=== PATIENT | female | born 1975 | race Caucasian/White ===

== ENCOUNTER 2017-03-05 11:24 | Emergency (ER) | payer BC ==
[~2017-03-05] VITALS: Ht 175.3 cm; Wt 67.3 kg
[2017-03-05 11:29] VITALS: TEMP 36.8; Ht 175.3 cm; Wt 67.3 kg
[2017-03-05] MEDS ORDERED: METHYLPREDNISOLONE 125 MG VIAL IV STA (12:10)
[2017-03-05] MEDS ORDERED: DiphenhydrAMINE HCL 50 MG/ML VIAL IV STA (12:10)
[2017-03-05] MEDS ORDERED: SODIUM CHLORIDE 0.9% 1000ML 1,000 ML IV STA (12:10)
[2017-03-05] MEDS ORDERED: OPTIRAY 320 IV PRN (12:30)
--- NOTE | 2017-03-05 12:33 | EMERGENCY ROOM VISIT NOTE ---
History Report prepared by Cassidy: Naina Salazar Under the Supervision of: Dr. Camille Rodriguez M.D. First contact with patient: 12:04 Chief Complaint: HEADACHE Stated Complaint: HAVING VISION CHANGES History of Present Illness The patient is a 41 year old female who presents to the Emergency Room with complaints of worsening headache starting 4 days ago. The pain is present along the top left side of her head. She has been having sinus issues for the past week. 4 days ago, she picked her grandson up from the ground when she started feeling a "crazy head brito". She started feeling the pain in her head and felt disoriented. She had some blurry vision and had trouble remembering some words. Her son told her that she seems confused and she had dark circles under her eyes. Since then her headache had gotten worse and her neck feels stiff. She has not had any speech difficulty or vision changes since then. She reports pain by her spine with deep breaths. She denies any fever, palpitations, chest pain, or back pain. She has a family history of aneurysms. She denies being on any hormone therapy or blood thinners. She does not smoke. She denies any medical problems. She does not take any medications besides some supplements. She denies any chance of . Source of History: patient Onset: 4 days ago Position: head Quality: ache Timing: worsening Associated Symptoms: No back pain, No chest pain, No fevers Note: Pt reports an episode of feeling disoriented, blurry vision, trouble remembering words, confusion, dark circles under eyes, pain by her spine with deep breaths. Pt denies palpitations. Review of Systems See HPI for pertinent positives & negatives. A total of 10 systems reviewed and were otherwise negative. Past Medical & Surgical Medical Problems: (1) No Known Active Medical Problems Family History FHx: aneurysm Social History Smoking Status: Never Smoker Marital Status: Occupation Status: unemployed Current/Historical Medications No Active Prescriptions or Reported Meds Allergies Coded Allergies: Iodinated Contrast Media (Verified Allergy, Intermediate, SNEEZING, HIVES AND ICHINESS, 03/05/17) Sulfa Drugs (Verified Allergy, Unknown, 03/05/17) RASH Physical Exam Vital Signs Date Time Temp Pulse Resp B/P Pulse Ox O2 Delivery O2 Flow Rate FiO2 03/05/17 14:43 93 18 130/68 97 03/05/17 13:48 98 16 143/75 99 Room Air 03/05/17 12:42 88 03/05/17 11:29 36.8 82 18 147/76 100 Room Air Physical Exam Vital signs reviewed. General: Well-appearing, in no significant distress. HEENT: No scleral icterus, PERRLA, neck supple. Atraumatic. No meningeal signs. Cardiovascular: Regular rate and rhythm, no extra sounds. Pulmonary: Clear to auscultation bilaterally, normal work of breathing. Abdomen: Soft, nontender, nondistended, positive bowel sounds. Musculoskeletal: Atraumatic, no peripheral edema. Neurologic: Patient awake alert and oriented x 3, full strength in all 4 extremities. Cranial nerves 2 through 12 grossly intact. Skin: Warm, dry, no rash Medical Decision & Procedures ER Provider Diagnostic Interpretation: Radiology results as stated below per my review and radiologist interpretation: CT ANGIOGRAPHY HEAD COMBO CT DOSE: 1075.43 mGy.cm CLINICAL HISTORY: Visual changes TECHNIQUE: Unenhanced images are obtained to the brain. CT angiography was then performed following administration 119 cc Optiray 320. MIP imaging was performed. COMPARISON STUDY: MR angiography the brain dated 02/06/2009 FINDINGS: Unenhanced images reveal no intra or extra-axial mass lesions. There is no CT evidence of acute cortical infarction. There is no midline shift. There is no acute hemorrhage. There is no hydrocephalus. Postcontrast images reveal no pathologically enhancing masses. There are no major intracranial branch occlusions. There is no evidence of major intracranial stenosis. There are no lesion suspicious for aneurysm. The dural venous sinuses appear patent IMPRESSION: Unremarkable CT angiography of the brain. Electronically signed by: Curtis Higgins M.D. 03/05/2017 2:05 PM Dictated Date/Time: 03/05/2017 2:[address] ANGIOGRAPHY THE NECK CT DOSE: CLINICAL HISTORY: Visual changes. TECHNIQUE: The patient was scanned in a dynamic helical fashion during intravenous administration of 119 cc of Optiray 320. MIP imaging was performed. COMPARISON STUDY: None. FINDINGS: The great vessel origins are unremarkable. There is no evidence of right internal carotid artery stenosis or dissection. There is no evidence for left internal carotid artery stenosis or dissection. There is no evidence for vertebral artery stenosis or dissection. The great vessel origins are unremarkable. IMPRESSION: 1. No evidence of vertebral or carotid artery stenosis, aneurysm, or dissection Electronically signed by: Curtis Higgins M.D. 03/05/2017 1:56 PM Dictated Date/Time: 03/05/2017 1:53 PM Laboratory Results 03/05/17 12:20 Red Blood Count 4.84, Mean Corpuscular Volume 89.9, Mean Corpuscular Hemoglobin 29.3, Mean Corpuscular Hemoglobin Concent 32.6, Mean Platelet Volume 11.0, Neutrophils (%) (Auto) 55.6, Lymphocytes (%) (Auto) 36.0, Monocytes (%) (Auto) 5.8, Eosinophils (%) (Auto) 2.1, Basophils (%) (Auto) 0.3, Neutrophils # (Auto) 3.44, Lymphocytes # (Auto) 2.23, Monocytes # (Auto) 0.36, Eosinophils # (Auto) 0.13, Basophils # (Auto) 0.02 03/05/17 12:20 Test 03/05/17 12:20 White Blood Count 6.19 K/uL (4.8-10.8) Red Blood Count 4.84 M/uL (4.2-5.4) Hemoglobin 14.2 g/dL (12.0-16.0) Hematocrit 43.5 % (37-47) Mean Corpuscular Volume 89.9 fL (80-100) Mean Corpuscular Hemoglobin 29.3 pg (25-34) Mean Corpuscular Hemoglobin Concent 32.6 g/dl (32-36) Platelet Count 248 K/uL (130-400) Mean Platelet Volume 11.0 fL (7.4-10.4) Neutrophils (%) (Auto) 55.6 % Lymphocytes (%) (Auto) 36.0 % Monocytes (%) (Auto) 5.8 % Eosinophils (%) (Auto) 2.1 % Basophils (%) (Auto) 0.3 % Neutrophils # (Auto) 3.44 K/uL (1.4-6.5) Lymphocytes # (Auto) 2.23 K/uL (1.2-3.4) Monocytes # (Auto) 0.36 K/uL (0.11-0.59) Eosinophils # (Auto) 0.13 K/uL (0-0.5) Basophils # (Auto) 0.02 K/uL (0-0.2) RDW Standard Deviation 40.5 fL (36.4-46.3) RDW Coefficient of Variation 12.4 % (11.5-14.5) Immature Granulocyte % (Auto) 0.2 % Immature Granulocyte # (Auto) 0.01 K/uL (0.00-0.02) Prothrombin Time 10.9 SECONDS (9.0-12.0) Prothromb Time International Ratio 1.0 (0.9-1.1) Activated Partial Thromboplast Time 24.5 SECONDS (21.0-31.0) Partial Thromboplastin Ratio 0.9 Anion Gap 6.0 mmol/L (3-11) Est Creatinine Clear Calc Drug Dose 88.2 ml/min Estimated GFR () 95.9 Estimated GFR (Non- 82.7 BUN/Creatinine Ratio 13.3 (10-20) Calcium Level 9.2 mg/dl (8.5-10.1) Magnesium Level 2.5 mg/dl (1.8-2.4) Total Bilirubin 0.5 mg/dl (0.2-1) Direct Bilirubin 0.1 mg/dl (0-0.2) Aspartate Amino Transf (AST/SGOT) 8 U/L (15-37) Alanine Aminotransferase (ALT/SGPT) 22 U/L (12-78) Alkaline Phosphatase 58 U/L (45-117) Total Protein 8.2 gm/dl (6.4-8.2) Albumin 4.5 gm/dl (3.4-5.0) Laboratory results per my review. Medications Administered Medications (Trade) Dose Ordered Sig/Manav Route Start Time Stop Time Status Last Admin Dose Admin Diphenhydramine HCl (Benadryl Inj) 25 mg NOW STAT IV 03/05/17 12:10 03/05/17 12:13 DC 03/05/17 12:24 25 MG Methylprednisolone Sodium Succinate 125 mg 125 mg NOW STAT IV 03/05/17 12:10 03/05/17 12:13 DC 03/05/17 12:25 125 MG Sodium Chloride (Nss 1000ml) 1,000 ml @ 999 mls/hr Q1H1M STAT IV 03/05/17 12:10 03/05/17 13:10 DC 03/05/17 12:24 999 MLS/HR Ibuprofen (Motrin Tab) 600 mg STK-MED ONCE .ROUTE 5/7/17 14:46 03/05/17 14:47 DC 03/05/17 14:51 600 MG ED Course 1208: Past medical records reviewed. The patient was evaluated in room A4B. A complete history and physical examination was performed. 1210: NSS 1000 ml @ 999 mls/hr IV, Solu-Medrol IV 125 mg IV, Benadryl Inj 25 mg. 1434: Toradol Inj 30 mg IV. 1444: Upon reevaluation, the patient appeared to have improvement of her symptoms. I discussed findings with her. She verbalized agreement of the treatment plan. She was discharged home. Medical Decision Differential diagnosis: Intracranial hemorrhage, intracranial mass, migraine headache, tension headache , sinusitis, meningitis, vertebral artery dissection. This patient was evaluated and appeared to be in some discomfort. IV access was obtained and laboratory work was drawn. The patient was placed on the rn cardiac and found to be in a normal sinus rhythm. She was given IV Benadryl, IV Solu-Medrol prior to CT antigun head and neck. Patient apparently had some minimal contrast reaction several years ago. CT scans are negative for acute abnormality. The patient is likely suffering from some migraine type syndrome. IV Toradol was ordered however the patient's IV had already been discontinued. She was given 600 mg of oral Motrin. The patient was discharged to follow-up with her primary care physician. She will continue current conservative management with Tylenol and Motrin. Patient will return to the ER for worsening of symptoms or any medical concerns. Impression Primary Impression: Left-sided headache Scribe Attestation The scribe's documentation has been prepared under my direction and personally reviewed by me in its entirety. I confirm that the note above accurately reflects all work, treatment, procedures, and medical decision making performed by me. Departure Information Dispostion Home / Self-Care Prescriptions No Active Prescriptions or Reported Meds Referrals No Doctor, Assigned (PCP) Priti Fischer Forms HOME CARE DOCUMENTATION FORM, IMPORTANT VISIT INFORMATION Patient Instructions My [facility] Additional Instructions Diagnosis: Headache Ibuprofen 600 mg every 6 hours as needed for pain with food. Drink plenty of clear fluids. Follow-up with your physician this week for reevaluation if symptoms continue. Return to the ER for worsening of symptoms or any medical concerns.
[2017-03-05 12:46] LABS: BASO % 0.3 %; BASO ABS # 0.02 K/uL (0-0.2); COMPLETE YES; EOS % 2.1 %; HEMATOCRIT 43.5 % (37-47); IG% 0.2 %; LYMPH ABS # 2.23 K/uL (1.2-3.4); MEAN CELL VOLUME 89.9 fL (80-100); MEAN CORPUSCULAR HEMOGLOBIN 29.3 pg (25-34); MEAN CORPUSCULAR HGB CONC 32.6 g/dl (32-36); MONO % 5.8 %; NEUT % 55.6 %; PLATELET COUNT 248 K/uL (130-400); RED BLOOD COUNT 4.84 M/uL (4.2-5.4); WHITE BLOOD COUNT 6.19 K/uL (4.8-10.8)
[2017-03-05 12:57] LABS: PARTIAL THROMBOPLASTIN RATIO 0.9; PROTHROMBIN TIME (PATIENT) 10.9 SECONDS (9.0-12.0)
[2017-03-05 13:03] LABS: BUN/CREATININE RATIO 13.3 (10-20); CALCIUM 9.2 mg/dl (8.5-10.1); CREATININE 0.86 mg/dl (0.60-1.20); MAGNESIUM 2.5 mg/dl (1.8-2.4); POTASSIUM 3.2 mmol/L (3.5-5.1)
--- NOTE | 2017-03-05 13:58 | DIAGNOSTIC IMAGING REPORT ---
CT ENHANCED CT ANGIOGRAPHY THE NECK CT DOSE: CLINICAL HISTORY: Visual changes. TECHNIQUE: The patient was scanned in a dynamic helical fashion during intravenous administration of 119 cc of Optiray 320. MIP imaging was performed. COMPARISON STUDY: None. FINDINGS: The great vessel origins are unremarkable. There is no evidence of right internal carotid artery stenosis or dissection. There is no evidence for left internal carotid artery stenosis or dissection. There is no evidence for vertebral artery stenosis or dissection. The great vessel origins are unremarkable. IMPRESSION: 1. No evidence of vertebral or carotid artery stenosis, aneurysm, or dissection Electronically signed by: Curtis Higgins M.D. 03/05/2017 1:56 PM Dictated Date/Time: 03/05/2017 1:53 PM
--- NOTE | 2017-03-05 14:06 | DIAGNOSTIC IMAGING REPORT ---
CT ANGIOGRAPHY HEAD COMBO CT DOSE: 1075.43 mGy.cm CLINICAL HISTORY: Visual changes TECHNIQUE: Unenhanced images are obtained to the brain. CT angiography was then performed following administration 119 cc Optiray 320. MIP imaging was performed. COMPARISON STUDY: MR angiography the brain dated 02/06/2009 FINDINGS: Unenhanced images reveal no intra or extra-axial mass lesions. There is no CT evidence of acute cortical infarction. There is no midline shift. There is no acute hemorrhage. There is no hydrocephalus. Postcontrast images reveal no pathologically enhancing masses. There are no major intracranial branch occlusions. There is no evidence of major intracranial stenosis. There are no lesion suspicious for aneurysm. The dural venous sinuses appear patent IMPRESSION: Unremarkable CT angiography of the brain. Electronically signed by: Curtis Higgins M.D. 03/05/2017 2:05 PM Dictated Date/Time: 03/05/2017 2:02 PM
[2017-03-05] MEDS ORDERED: KETOROLAC TROMETHAMINE 30 MG/ML VIAL IV STA (14:34)
[2017-03-05 14:43] VITALS: BP 130/68; PULSE 93; O2SAT 97
[2017-03-05] MEDS ORDERED: IBUPROFEN 600 MG TAB ONE (14:46)
== END 2017-03-05 14:44 | disposition home or self-care (01) ==
LOC: C.EDB 11:26 → C.EDA 14:44
DX: R51 Headache (principal)

== ENCOUNTER 2018-02-19 09:17 | Emergency (ER) | payer OTHER ==
[2018-02-19 09:25] VITALS: TEMP 36.7
[2018-02-19] MEDS ORDERED: ACETAMINOPHEN 500 MG TAB PO STA (10:14)
[2018-02-19] MEDS ORDERED: TURM1CAP2 PO (10:51)
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
--- NOTE | 2018-02-19 11:34 | DIAGNOSTIC IMAGING REPORT ---
LUMBAR SPINE 5 VIEWS CLINICAL HISTORY: Low back pain. FINDINGS: 5 views of the lumbar spine are correlated with abdominal CT dated 12/24/2012.. The skeletal structures are well mineralized. There is no radiographic evidence of fracture or malalignment. Vertebral body height and alignment are maintained. The transverse and spinous processes are intact. There is no evidence of spondylolysis. The intervertebral disc spaces are well-maintained. The visualized bony pelvis appears intact. There is a nonobstructed abdominal bowel gas pattern. Moderate colonic fecal retention is noted. Small phleboliths are noted in the left hemipelvis. IMPRESSION: Unremarkable radiographic evaluation of the lumbosacral spine. Electronically signed by: Ministerio Puente M.D. 02/19/2018 11:32 AM Dictated Date/Time: 02/19/2018 11:30 AM
[2018-02-19] MEDS ORDERED: HYDR-5688 PO (12:16)
[2018-02-19] MEDS ORDERED: CYCL10TA6 PO (12:16)
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
[2018-02-19 12:21] VITALS: BP 137/82; PULSE 72; O2SAT 97
== END 2018-02-19 12:21 | disposition home or self-care (01) ==
LOC: C.EDB 09:22 → MERGE 09:22 → C.EDB 12:21
DX: M54.2 Cervicalgia (principal); M54.5 Low back pain; V49.40XA Driver injured in collision with unspecified motor vehicles in traffic accident, initial encounter; Z91.041 Radiographic dye allergy status; Z88.2 Allergy status to sulfonamides